=== PATIENT | male | born 1970 | race African-American/Black ===

== ENCOUNTER 2017-10-06 16:42 | Inpatient (IN) | payer MEDICARE, OTHER ==
[2017-10-06] MEDS ORDERED: Morphine 10 MG/ML VIAL ONE (17:50)
[2017-10-06] MEDS ORDERED: Promethazine HCl 25 MG/ML VIAL ONE (17:50)
[2017-10-06] MEDS ORDERED: Piperacillin/Tazobactam 4.5 GM VIAL ONE (17:51)
[2017-10-06] MEDS ORDERED: Sodium Chloride 0.9% 0 ML ONE (17:51)
--- NOTE | 2017-10-06 17:52 | ULT ---
SOFT TISSUE ULTRASOUND OF LEFT UPPER EXTREMITY: 10/06/17 Mcwilliams scale and doppler color flow imaging performed. CLINICAL HISTORY: Edema, clinical concern for abscess. FINDINGS: Imaged soft tissues of the left upper extremity reveal interspersed areas of edema without a localiza ble focal fluid collection. IMPRESSION: Soft tissue edema. No drainable fluid collection evident. Correlate clinically. POS: [facility]
[2017-10-06 17:55] LABS: ALT (SGPT) 45 U/L (8-55); AST (SGOT) 40 U/L (5-34); Albumin 3.7 g/dL (3.5-5.0); Alkaline Phosphatase 48 U/L (40-150); Anion Gap 14 mmol/L (10-20); BUN (Urea Nitrogen) 14 mg/dL (8.9-20.6); Bilirubin, Total 0.6 mg/dL (0.2-1.2); Calc. Creatinine Clearance 0 mL/min (70-130); Carbon Dioxide 26 mmol/L (22-29); Chloride 102 mmol/L (98-107); Estimated GFR-MDRD Greater than 90; Globulin 5.1 g/dL (2.4-3.5); Glucose 107 mg/dL (70-105); Mean Corpuscular HGB CONC 33.6 g/dL (32.0-36.0); Mean Corpuscular Hemoglobin 31.2 pg (27.0-31.0); Mean Corpuscular Volume 92.8 fl (80.0-94.0); Mean Platelet Volume 9.4 fL (7.4-10.4); Platelet Count 115 thou/uL (130-400); Protein, Total 8.8 g/dL (6.0-8.3); RBC Distribution Width 18.4 % (11.5-14.5); Red Blood Cell (RBC) Count 2.89 mill/uL (4.70-6.10); Sodium 138 mmol/L (136-145)
[2017-10-06 18:09] LABS: Anisocytosis SLIGHT = 6-15 cells (100X) (0-5/hpf); Band 5 % (5-11); Eosinophils 2 % (0-10); Hypochromia SLIGHT = 6-15 cells (100X) (0-5/hpf); Lymphocytes 6 % (21-51); MDiff Complete? YES; Metamyelocyte 3 % (0-0); Monocytes 3 % (0-10); Myelocyte 3 % (0-0); Neutrophil 76 % (42-75); Nucleated RBC 1 % (0); PLT Morphology Comment Appears Adequate; Polychromasia SLIGHT = 2-3 cells (100X) (0-2/hpf)
[2017-10-06] MEDS ORDERED: Clindamycin/D5W 900 mg/50 ml Premix Bag ONE (18:36)
[2017-10-06] MEDS ORDERED: Sodium Chloride 0.9% 100 ML ONE (19:23)
[2017-10-06] MEDS ORDERED: HYDROcodone/Acetaminophen 5/325 mg Tablet PO PRN ×2 (22:06)
[2017-10-06] MEDS ORDERED: Sodium Chloride 0.9% 1,000 ML IV SCH (22:06)
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
[2017-10-06 23:30] VITALS: BMI 21.8
[2017-10-06] MEDS: Lactated Ringer's 1,000 ML IV SCH (23:50)
[2017-10-06] MEDS: Piperacillin/Tazobactam 3.375 GM in Sodium Chloride 0.9% 100 ML IVPB SCH (23:59)
[2017-10-06] MEDS ORDERED: Piperacillin/Tazobactam 4.5 GM in Sodium Chloride 0.9% 100 ML IVPB SCH (23:59)
[2017-10-07] MEDS: Ketorolac Tromethamine 30 MG/ML VIAL IVP PRN ×3 (01:31→16:54)
[2017-10-07] MEDS ORDERED: Clindamycin/D5W 900 MG in Premix Bag 1 BAG IVPB SCH (02:00)
[2017-10-07] MEDS ORDERED: Acetaminophen 500 MG TAB PO PRN (04:49)
[2017-10-07 05:31] LABS: Anion Gap 9 mmol/L (10-20); BUN (Urea Nitrogen) 17 mg/dL (8.9-20.6); Calc. Creatinine Clearance 86 mL/min (70-130); Calcium 8.7 mg/dL (7.8-10.44); Carbon Dioxide 28 mmol/L (22-29); Chloride 107 mmol/L (98-107); Estimated GFR-MDRD 86; Glucose 100 mg/dL (70-105); Sodium 140 mmol/L (136-145)
[2017-10-07 05:45] LABS: Band 11 % (5-11); Hemoglobin 8.4 g/dL (14.0-18.0); Lymphocytes 6 % (21-51); MDiff Complete? YES; Macrocytosis SLIGHT = 6-15 cells (100X) (0-5/hpf); Mean Corpuscular HGB CONC 30.3 g/dL (32.0-36.0); Mean Corpuscular Hemoglobin 29.8 pg (27.0-31.0); Mean Corpuscular Volume 98.2 fl (80.0-94.0); Metamyelocyte 27 % (0-0); Monocytes 1 % (0-10); Myelocyte 19 % (0-0); Neutrophil 36 % (42-75); PLT Morphology Comment Appears Decreased; Platelet Count 95 thou/uL (130-400); RBC Distribution Width 18.3 % (11.5-14.5); Red Blood Cell (RBC) Count 2.83 mill/uL (4.70-6.10)
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
[2017-10-07] MEDS ORDERED: Imatinib Mesylate [Gleevec] 400 MG PO SCH (08:00)
[2017-10-07] MEDS: Piperacillin/Tazobactam 3.375 GM in Sodium Chloride 0.9% 100 ML IVPB SCH ×3 (08:06→17:44)
[2017-10-07] MEDS: Hydroxyurea 500 MG CAP PO SCH (08:10)
[2017-10-07] MEDS: Allopurinol 300 MG TAB PO SCH (08:11)
[2017-10-07] MEDS ORDERED: FLU VACC QS2017-18 36 mo. & older 0.5 ML SYRINGE IM ONE (09:00)
[2017-10-07 09:09] LABS: Amphetamine Not Detected (NotDetected); Barbiturates Screen Not Detected (NotDetected); Benzodiazepine Screen Not Detected (NotDetected); Cocaine Metabolite Screen Detected (NotDetected); Medtox Control Line Valid? VALID (VALID); Medtox Reader # READER 1; Methadone Not Detected (NotDetected); Methamphetamine Not Detected (NotDetected); Opiate Screen Detected (NotDetected); Oxycodone Screen Not Detected (NotDetected); Phencyclidine (PCP) Not Detected (NotDetected); THC/Cannabinoid Screen Not Detected (NotDetected); Tricyclic Screen Not Detected (NotDetected)
[2017-10-07] MEDS: Vancomycin HCl 1.25 GM in Sodium Chloride 0.9% 250 ML 250 ML IVPB SCH ×2 (09:10→20:21)
[2017-10-07] MEDS ORDERED: Enoxaparin Sodium 40 MG/0.4 ML SYRINGE SC SCH (09:45)
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
--- NOTE | 2017-10-07 12:00 | RAD ---
CHEST 2 VIEWS: Date: 10/07/17 HISTORY: Bilateral lower lung zone crackles. FINDINGS: Heart size and mediastinum are within normal limits. There is minimal linear interstitial change in t he bases consistent with atelectasis or scar. IMPRESSION: Minimal linear atelectasis or scar in the lung bases. POS: [facility]
[2017-10-07] MEDS: traMADol HCl 50 MG TAB PO PRN (14:37)
[2017-10-07 15:20] LABS: HIV (1/2) Antibody/Antigen Non-Reactive (NonReactive); HIV 1/2 INDEX 0.25 S/CO (<1.00)
[2017-10-08] MEDS: Ketorolac Tromethamine 30 MG/ML VIAL IVP PRN ×2 (00:01→06:24)
[2017-10-08] MEDS: Piperacillin/Tazobactam 3.375 GM in Sodium Chloride 0.9% 100 ML IVPB SCH ×3 (00:02→11:52)
--- NOTE | 2017-10-08 05:49 | PDOC.FM ---
- Subjective Subjective: This morning the patient states he is having mild soreness at the left elbow but the ROM is continuing to increase daily. He denies N/V/D. He denies fevers, chills, or sweats. THe pain is a 4/10 ache, made worse with movement, relieved with tylenol and tramadol. - Objective Vital Signs & Weight: Vital Signs (12 hours) Temp Pulse Resp Pulse Ox 10/07/17 20:00 98.5 F 78 20 95 Weight Weight 75.041 kg Result Diagrams: 10/08/17 07:10 10/08/17 07:10 <Catarino Woods - Last Filed: 10/08/17 10:44> - Objective Vital Signs & Weight: Vital Signs (12 hours) Temp Pulse Resp BP Pulse Ox 10/08/17 08:00 97.7 F 75 18 95 10/08/17 07:10 97.7 F 75 18 112/72 95 Weight Weight 75.041 kg Result Diagrams: 10/08/17 07:10 10/08/17 07:10 <Tomás Soto - Last Filed: 10/08/17 10:53> Phys Exam - Physical Examination Constitutional: NAD HEENT: PERRLA, moist MMs Neck: no nodes, full ROM Respiratory: no wheezing, clear to auscultation bilateral Cardiovascular: RRR 1/6 systolic murmur Gastrointestinal: soft, non-tender, no distention, positive bowel sounds Musculoskeletal: no edema, pulses present Neurological: non-focal, moves all 4 limbs Lymphatic: no nodes Psychiatric: normal affect, A&O x 3 Skin: cap refill <2 seconds Deviation from normal: redness completely resolved, mild swelling of bursa at L elbow, no warmth <Catarino Woods - Last Filed: 10/08/17 10:44> Dx/Plan (1) CML (chronic myeloid leukemia) Code(s): C92.10 - CHRONIC MYELOID LEUK, BCR/ABL-POSITIVE, NOT ACHIEVE REMIS Status: Acute (2) Cellulitis Code(s): L03.90 - CELLULITIS, UNSPECIFIED Status: Acute QualifierTitle: Site of cellulitis: extremity Site of cellulitis of extremity: upper extremity Laterality: left Qualified Code(s): L03.114 - Cellulitis of left upper limb (3) Cellulitis of left elbow Code(s): L03.114 - CELLULITIS OF LEFT UPPER LIMB Status: Acute (4) Cocaine abuse Code(s): F14.10 - COCAINE ABUSE, UNCOMPLICATED Status: Acute (5) Hepatitis C Code(s): B19.20 - UNSPECIFIED VIRAL HEPATITIS C WITHOUT HEPATIC COMA Status: Acute QualifierTitle: Viral hepatitis chronicity: chronic Hepatic coma status: without hepatic coma Qualified Code(s): B18.2 - Chronic viral hepatitis C (6) Normocytic anemia Code(s): D64.9 - ANEMIA, UNSPECIFIED Status: Acute (7) Systolic murmur Code(s): R01.1 - CARDIAC MURMUR, UNSPECIFIED Status: Acute (8) Thrombocytopenia Code(s): D69.6 - THROMBOCYTOPENIA, UNSPECIFIED Status: Acute (9) Gout Code(s): M10.9 - GOUT, UNSPECIFIED Status: Inactive QualifierTitle: Gout site: unspecified site Gout etiology: unspecified cause Chronicity: unspecified Qualified Code(s): M10.9 - Gout, unspecified - Plan Plan: Cellulitis of LUE - US shows no abscess - immunocompromised -Blood cultures no growth to day -Vanc day 1, Zosyn day 3 -LR @ 125 mL/hr -tyl, tramadol Mild Thrombocytopenia - On Gleevac, hasnt refilled lately - 115 -> 95 -> 97 Normocytic Anemia - Hb 8.6 -Will continue to monitor CML Patient was diagnosed in 2006. -Will continue Gleevec and Hydroxyurea -f/u with Onc in [place] Hepatitis C Patient had never been treated. -HIV negative Cocaine Abuse Most recent use of crack cocaine was 2 days b4 admission -UDS opiates, cocaine Systolic Murmur - blood cultures negative - no further workup indicated Gout -Continue home allopurinol Dispo: d.c today pending blood culture results. <Catarino Woods - Last Filed: 10/08/17 10:44> Attending Addendum - Attending Addendum Date/Time: 10/08/17 1050 I personally evaluated the patient and discussed the management with Dr. Woods I agree with the History, Examination, Assessment and Plan documented above with any addition or exceptions noted below.Awaiting final blood culture result anticipate negative then stable for dismissal po antibiotic and follow up with Physician in [place]. <Charles,[employer] - Last Filed: 10/08/17 10:53>
[2017-10-08 07:25] LABS: Hemoglobin 8.6 g/dL (14.0-18.0); Mean Corpuscular HGB CONC 29.7 g/dL (32.0-36.0); Mean Corpuscular Hemoglobin 29.9 pg (27.0-31.0); Mean Platelet Volume 8.4 fL (7.4-10.4); Platelet Count 98 thou/uL (130-400); RBC Distribution Width 18.3 % (11.5-14.5); Red Blood Cell (RBC) Count 2.88 mill/uL (4.70-6.10)
[2017-10-08 07:49] LABS: Anion Gap 8 mmol/L (10-20); BUN (Urea Nitrogen) 12 mg/dL (8.9-20.6); Calc. Creatinine Clearance 98 mL/min (70-130); Calcium 9.1 mg/dL (7.8-10.44); Carbon Dioxide 30 mmol/L (22-29); Chloride 103 mmol/L (98-107); Estimated GFR-MDRD Greater than 90; Glucose 89 mg/dL (70-105); Potassium 4.1 mmol/L (3.5-5.1); Sodium 137 mmol/L (136-145)
[2017-10-08 07:50] LABS: Vancomycin, Trough 9.7 ug/mL
[2017-10-08 07:54] LABS: Band 21 % (5-11); Blast 1 % (0-0); Eosinophils 3 % (0-10); MDiff Complete? YES; Macrocytosis SLIGHT = 6-15 cells (100X) (0-5/hpf); Metamyelocyte 10 % (0-0); Monocytes 1 % (0-10); Myelocyte 15 % (0-0); Neutrophil 43 % (42-75); PLT Morphology Comment Appears Decreased; Polychromasia SLIGHT = 2-3 cells (100X) (0-2/hpf); Promyelocytes 6 % (0-0); Reflex for Review?? NO
[2017-10-08 08:01] VITALS: BP 112/72; TEMP 97.7
[2017-10-08] MEDS: traMADol HCl 50 MG TAB PO PRN (08:21)
[2017-10-08] MEDS: Hydroxyurea 500 MG CAP PO SCH (08:21)
[2017-10-08] MEDS: Allopurinol 300 MG TAB PO SCH (08:21)
[2017-10-08] MEDS: Vancomycin HCl 1.25 GM in Sodium Chloride 0.9% 250 ML 250 ML IVPB SCH (08:22)
[2017-10-08] MEDS: Lactated Ringer's 1,000 ML IV SCH (08:35)
[2017-10-08] MEDS ORDERED: Enoxaparin Sodium 40 MG/0.4 ML SYRINGE SC SCH (09:00)
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
== END 2017-10-08 16:45 | disposition home or self-care (01) | DRG 603 ==
LOC: SCSER 16:42 → ONC 20:49
PROVIDERS: ADMIT Family Medicine; ATTEND Family Medicine
DX: L03.114 Cellulitis of left upper limb (principal); C92.10 Chronic myeloid leukemia, BCR/ABL-positive, not having achieved remission; D69.6 Thrombocytopenia, unspecified; F14.10 Cocaine abuse, uncomplicated; B18.2 Chronic viral hepatitis C; D64.9 Anemia, unspecified; R01.1 Cardiac murmur, unspecified; M10.9 Gout, unspecified; Z79.899 Other long term (current) drug therapy
CPT/HCPCS: 36415; 71046; 76999; 80048; 80053; 80202; 80306; 83605; 85025; 85060; 87040; 87389; 96365; 96367; 96375; A4216; J1650; J1885; J2270; J2543; J2550; J3370; J3490; J7050

== ENCOUNTER 2018-04-26 09:41 | Emergency (ER) | payer MEDICARE ==
[2018-04-26] MEDS ORDERED: Ketorolac Tromethamine 60 MG/2 ML VIAL ONE (10:15)
[2018-04-26] MEDS ORDERED: Metoclopramide HCl 10 MG/2 ML VIAL ONE (10:15)
[2018-04-26 10:40] LABS: Hemoglobin 8.4 g/dL (14.0-18.0); Mean Corpuscular HGB CONC 31.6 g/dL (32.0-36.0); Mean Corpuscular Hemoglobin 29.4 pg (27.0-31.0); Mean Platelet Volume 7.8 fL (7.4-10.4); Platelet Count 124 thou/uL (130-400); RBC Distribution Width 16.8 % (11.5-14.5); Red Blood Cell (RBC) Count 2.87 mill/uL (4.70-6.10)
--- NOTE | 2018-04-26 10:54 | CT ---
CT OF NANCY PERFORMED WIHTOUT CONTRAST ENHANCEMENT: HISTORY: Headache x 1 week. History of hepatitis C and leukemia. FINDINGS: The ventricular and cisternal system is within normal limits. There are no signs of intracerebral he morrhage or extraaxial fluid collections. Mastoid air cells and visualized sinuses are clear. IMPRESSION: No acute intracranial abnormalities. POS: [facility]
--- NOTE | 2018-04-26 10:55 | RAD ---
TWO VIEWS OF THE CHEST: COMPARISON: 10/07/17. HISTORY: Cough. FINDINGS: Two views of the chest show normal sized cardiomediastinal silhouette. There is no evidence of consol idation, mass, or pleural effusion. The bones are unremarkable. IMPRESSION: No evidence of acute cardiopulmonary disease. POS: [facility]
[2018-04-26 10:57] LABS: ALT (SGPT) 56 U/L (8-55); AST (SGOT) 39 U/L (5-34); Acetaminophen Less than 6.0 mcg/mL (10.0-30.0); Albumin 3.9 g/dL (3.5-5.0); Alcohol Less than 10 mg/dL (Less than 10); Alkaline Phosphatase 58 U/L (40-150); Anion Gap 8 mmol/L (10-20); BUN (Urea Nitrogen) 9 mg/dL (8.9-20.6); Bilirubin, Total 0.7 mg/dL (0.2-1.2); Calc. Creatinine Clearance 0 mL/min (70-130); Calcium 9.4 mg/dL (7.8-10.44); Carbon Dioxide 28 mmol/L (22-29); Chloride 102 mmol/L (98-107); Estimated GFR-MDRD 73; Globulin 5.2 g/dL (2.4-3.5); Glucose 108 mg/dL (70-105); Lipase 34 U/L (8-78); Potassium 3.4 mmol/L (3.5-5.1); Protein, Total 9.1 g/dL (6.0-8.3); Salicylate Less than 8.0 mg/dL (15.0-30.0); Sodium 135 mmol/L (136-145)
[2018-04-26 11:01] LABS: Band 22 % (5-11); Blast 5 % (0-0); Lymphocytes 3 % (21-51); MDiff Complete? YES; Metamyelocyte 8 % (0-0); Monocytes 2 % (0-10); Myelocyte 12 % (0-0); Neutrophil 37 % (42-75); Nucleated RBC 5 % (0); PLT Morphology Comment Appears Decreased; Promyelocytes 7 % (0-0); RBC Morphology Normal; Reflex for Review?? NO
[2018-04-26 11:11] LABS: Bilirubin Negative (Negative); Blood, Urine Negative (Negative); Clarity CLEAR (Clear); Glucose, Urine (Dipstick) Negative (Negative); Leukocyte Negative (Negative); Nitrite Negative (Negative); Protein, Urine (Dipstick) 30 mg/dL (Neg-Trace); Specific Gravity, Urine 1.014 (1.002-1.036); pH, Urine 7.5 (5.0-9.0)
[2018-04-26 11:12] LABS: Amphetamine Not Detected (NotDetected); Barbiturates Screen Not Detected (NotDetected); Benzodiazepine Screen Not Detected (NotDetected); Cocaine Metabolite Screen Detected (NotDetected); Medtox Control Line Valid? VALID (VALID); Medtox Reader # READER 1; Methadone Not Detected (NotDetected); Methamphetamine Not Detected (NotDetected); Opiate Screen Not Detected (NotDetected); Oxycodone Screen Not Detected (NotDetected); Phencyclidine (PCP) Not Detected (NotDetected); THC/Cannabinoid Screen Detected (NotDetected); Tricyclic Screen Not Detected (NotDetected)
[2018-04-26 11:14] LABS: Bacteria/HPF None Seen HPF (None Seen); Hyaline Casts/LPF 0-3 HYALINE CAST LPF (0-3 Hyaline); Pathc Cast-AUWi Flag 0.14 (0-2.49); RBC/HPF 0-3 HPF (0-3); Squamous Epithelial None Seen HPF (0-3); WBC/HPF 0-3 HPF (0-3)
== END 2018-04-26 12:10 | disposition home or self-care (01) ==
LOC: ERS 09:41
DX: R51 Headache (principal); C92.10 Chronic myeloid leukemia, BCR/ABL-positive, not having achieved remission; M79.1 Myalgia
CPT/HCPCS: 70450; 71046; 80053; 80306; 80307; 81003; 81015; 83690; 85025; 96365; 96375; J1885; J2765

== ENCOUNTER 2018-08-22 19:41 | Observation (INO) | payer MEDICARE ==
[~2018-08-22 19:41] MED LIST: ISOVUE-370 76%-LOCM 1 ML ONE
[2018-08-22 20:19] LABS: Hemoglobin 9.3 g/dL (14.0-18.0); Mean Corpuscular HGB CONC 29.5 g/dL (32.0-36.0); Mean Corpuscular Hemoglobin 28.3 pg (27.0-31.0); Mean Corpuscular Volume 96.1 fL (78.0-98.0); Mean Platelet Volume 8.4 fL (7.4-10.4); Platelet Count 206 thou/uL (130-400); RBC Distribution Width 15.7 % (11.5-14.5); Red Blood Cell (RBC) Count 3.29 mill/uL (4.70-6.10); White Blood Cell (WBC) Count 92.3 thou/uL (4.8-10.8)
[2018-08-22] MEDS ORDERED: Aspirin 325 MG TAB ONE (20:30)
[2018-08-22 20:36] LABS: Band 17 % (5-11); Hypochromia SLIGHT = 6-15 cells (100X) (0-5/hpf); Lymphocytes 4 % (21-51); MDiff Complete? YES; Metamyelocyte 3 % (0-0); Monocytes 6 % (0-10); Neutrophil 70 % (42-75); Nucleated RBC 2 % (0); Platelet Morphology Comment Appears Adequate; Reflex for Review?? YES
--- NOTE | 2018-08-22 20:36 | RAD ---
FRONTAL RADIOGRAPH CHEST: 08/22/18 COMPARISON: 04/26/18. HISTORY: Left sided chest pain. FINDINGS: No pneumothorax, pleural fluid, focal consolidation, or alveolar edema. The heart and mediastinal con tours are unremarkable. IMPRESSION: No acute findings. POS: [facility]
[2018-08-22 20:49] LABS: ALT (SGPT) 41 U/L (8-55); AST (SGOT) 30 U/L (5-34); Albumin 3.8 g/dL (3.5-5.0); Alkaline Phosphatase 47 U/L (40-150); Anion Gap 8 mmol/L (10-20); BUN (Urea Nitrogen) 15 mg/dL (8.9-20.6); Bilirubin, Total 0.3 mg/dL (0.2-1.2); Calc. Creatinine Clearance 0 mL/min (70-130); Carbon Dioxide 29 mmol/L (22-29); Chloride 104 mmol/L (98-107); Estimated GFR-MDRD 82; Globulin 4.6 g/dL (2.4-3.5); Glucose 75 mg/dL (70-105); Potassium 3.8 mmol/L (3.5-5.1); Protein, Total 8.4 g/dL (6.0-8.3); Sodium 137 mmol/L (136-145)
[2018-08-22 21:52] LABS: Bilirubin Negative (Negative); Blood, Urine Negative (Negative); Clarity CLEAR (Clear); Glucose, Urine (Dipstick) Negative (Negative); Leukocyte Negative (Negative); Nitrite Negative (Negative); Protein, Urine (Dipstick) Negative (Neg-Trace); Specific Gravity, Urine 1.019 (1.002-1.036); Urobilinogen 0.2 mg/dL (0.2-1.0); pH, Urine 5.5 (5.0-9.0)
[2018-08-22 22:04] LABS: Amphetamine Not Detected (NotDetected); Barbiturates Screen Not Detected (NotDetected); Benzodiazepine Screen Not Detected (NotDetected); Cocaine Metabolite Screen Not Detected (NotDetected); Medtox Control Line Valid? VALID (VALID); Medtox Reader # READER 1; Methadone Not Detected (NotDetected); Methamphetamine Not Detected (NotDetected); Opiate Screen Not Detected (NotDetected); Oxycodone Screen Not Detected (NotDetected); Phencyclidine (PCP) Not Detected (NotDetected); THC/Cannabinoid Screen Not Detected (NotDetected); Tricyclic Screen Not Detected (NotDetected)
--- NOTE | 2018-08-22 22:37 | ULT ---
RIGHT LOWER EXTREMITY VENOUS DOPPLER ULTRASOUND: 08/22/18 HISTORY: Pain. swelling, assess for DVT. Intermittent right sided knee pain and swelling. TECHNIQUE: Multiplanar self scale sonographic imaging of the venous structures of right lower extremity obtained with color flow and spectral analysis. FINDINGS: Right common femoral vein, greater saphenous vein, profunda femoral vein, femoral vein, popliteal vei n, and posterior tibial vein are patent. There is a small complex fluid collection in the popliteal f leonila on the right measuring 2.4 x 0.6 x 2.0 cm suggesting a Salcedo's cyst, possibly ruptured. IMPRESSION: Findings suggesting a small Salcedo's cyst as above. No evidence of deep venous thrombosis of the right lower extremity. POS: [facility]
--- NOTE | 2018-08-22 22:50 | CT ---
CT ANGIOGRAM OF THE CHEST: 08/22/18 HISTORY: Left sided chest pain. TECHNIQUE: Axial CT imaging at 2.5 mm intervals from the thoracic inlet through the upper abdomen with IV contra st using a CT angiogram protocol. Coronal and oblique sagittal 3D reformatted imaging obtained. FINDINGS: No enlarged axillary lymph nodes are noted. Multiple subcentimeter nodes are seen within bilateral ax illary regions. No enlarged mediastinal or hilar lymph nodes are noted. The spleen is enlarged, measuring at least 15.1 x 11.0 cm, incompletely visualized on this exam. No pleural, pericardial, or mediastinal fluid seen. No pulmonary arterial filling defect is seen to suggest the presence of pulmonary arterial embolism. No pneumothorax is noted. The lung parenchyma demonstrates no acute findings. No acute osseous abnormality is noted. IMPRESSION: No evidence for pulmonary arterial embolism. Incompletely imaged splenomegaly noted. POS: [facility]
[2018-08-22] MEDS ORDERED: Acetaminophen 325 MG TAB PO PRN (23:39)
[2018-08-22] MEDS ORDERED: Ondansetron PF 4 MG/2 ML Vial IVP PRN (23:39)
[2018-08-22] MEDS ORDERED: Ondansetron ODT 4 MG TAB SL PRN (23:39)
[2018-08-22 23:58] VITALS: BMI 23.0
[2018-08-23] MEDS: Sodium Chloride 0.9% 1,000 ML IV SCH ×3 (00:06→09:33)
[2018-08-23] MEDS ORDERED: Senokot S 8.6-50 MG TAB PO PRN (00:26)
[2018-08-23] MEDS ORDERED: Nitroglycerin 0.4 MG TAB (25 Tab Bottle) PO PRN (00:26)
[2018-08-23] MEDS ORDERED: Acetaminophen 325 MG TAB PO PRN (00:26)
--- NOTE | 2018-08-23 00:50 | HP ---
The patient was seen and examined on 08/22/2018. CHIEF COMPLAINT: Chest discomfort. HISTORY OF PRESENT ILLNESS: The patient is a 48-year-old male with chronic myeloid leukemia and chronic hepatitis C, presented to the emergency room with chest discomfort. Over the last 2 days, the patient has on and off chest discomfort over his left side of the chest. The pain gets worse with deep breathing. He is able to pinpoint where the pain is. He denies any recent falls, injuries, or muscle exertion. No palpitations, syncope, fever, chills, cough reported. He is very active and walks up to 5 miles a day. He had a stress test in 2011 that was negative per the patient's report. In the emergency room, initial vital signs showed temperature of 98.4, respirations 17, pulse of 84 with a blood pressure 111/72, O2 saturation 98% on room air. He received aspirin with IV fluids in the emergency room. Troponin was negative. CT angiogram of the chest was negative for pulmonary embolism or dissection. The patient also had right lower extremity Doppler that was negative for DVT. It showed a small Salcedo cyst in the popliteal fossa. PAST MEDICAL HISTORY: 1. Chronic hepatitis C. 2. Chronic myeloid leukemia. 3. Gout. PAST SURGICAL HISTORY: Incision and drainage of abscess. ALLERGIES: NO KNOWN DRUG ALLERGIES. CURRENT HOME MEDICATIONS: 1. Gleevec 400 mg daily. 2. Allopurinol 300 mg b.i.d.. SOCIAL HISTORY: The patient denies any tobacco or current use of alcohol. He has history of cocaine abuse in the past. He denies current use of cocaine. Urine drug screen in the emergency room was negative. FAMILY HISTORY: Father with colon cancer. REVIEW OF SYSTEMS: All other review of systems were reviewed and were found negative. PHYSICAL EXAMINATION: VITAL SIGNS: As discussed above. GENERAL: A 48-year-old male, in no apparent distress. Chest discomfort has improved. HEENT: Head atraumatic, normocephalic. Sclerae anicteric. Moist mucous membranes. No oral lesion. NECK: Supple. No JVD appreciated. No carotid bruit. LUNGS: Clear to auscultation bilaterally. No wheezing, rales, or rhonchi. HEART: S1 and S2 present. Regular rate and rhythm. No murmurs, rubs, or gallops appreciated. There is point tenderness over his left chest approximately 1 inch medial to the nipple. ABDOMEN: Soft, nontender. Bowel sounds present. EXTREMITIES: No edema or calf tenderness. There is approximately 3 x 3 cm swelling in the popliteal fossa on the right. SKIN: Warm and dry. LYMPH NODE: No palpable lymph nodes in the neck. PERIPHERAL VASCULAR: Radial pulses palpable bilaterally. MUSCULOSKELETAL: No joint swelling or tenderness. LABORATORY FINDINGS: WBC 92.3, hemoglobin 9.3, platelet 206. D-dimer 1.77. Chemistry showed sodium 137, potassium 3.8, chloride 104, bicarb 29, BUN 15, and creatinine 1.1. Urinalysis and urine drug screen negative. Chest x-ray by my review was negative for infiltrate or edema. EKG by my review showed sinus rhythm with premature ventricular complexes. IMPRESSION: 1. Atypical pleuritic chest pain with pinpoint tenderness. 2. Chronic myeloid leukemia, on Gleevec. 3. Gout, on allopurinol. 4. Chronic hepatitis C. 5. Chronic kidney disease stage 2. 6. Elevated D-dimer with negative CT angiogram of the chest. 7. Splenomegaly. 8. Chronic normochromic normocytic anemia. PLAN: 1. The patient will be monitored on the telemetry unit. Serial troponins will be obtained. Echocardiogram will be obtained to rule out pericarditis. We will check magnesium due to PVCs. Continue home medications once verified. 2. Disposition, probably in 24 hours. 3. Diet, heart healthy. 4. Plan was discussed with the patient in detail. He stated understanding. We will continue aspirin. Job ID: [id number]
[2018-08-23] MEDS: HYDROcodone/Acetaminophen 5/325 mg Tablet PO PRN ×2 (07:27→11:39)
[2018-08-23] MEDS ORDERED: (Imatinib Mesylate [Gleevec] 400 MG) PO SCH (08:00)
[2018-08-23 08:11] VITALS: BP 109/61; TEMP 97.7
[2018-08-23] MEDS ORDERED: Aspirin 81 mg Enteric Coated Tablet PO SCH (09:00)
[2018-08-23] MEDS ORDERED: Allopurinol 300 MG TAB PO SCH (09:00)
--- NOTE | 2018-08-23 12:00 | PDOC.PN ---
- Subjective Encounter Start Date: 08/23/18 Encounter Start Time: 10:00 Subjective: no specific chest pain or palp -: has gen body ache which has gotten better -: no fever, cough or palp or sob - Objective Resuscitation Status - Order Detail: 08/23/18 00:26 Resuscitation Status Routine Resuscitation Status: FULL: Full Resuscitation MAR Reviewed: Yes Vital Signs & Weight: Vital Signs (12 hours) Temp Pulse Resp BP Pulse Ox 08/23/18 08:00 97.7 F 70 16 109/61 98 08/23/18 03:53 97.4 F L 66 16 102/55 L 97 Weight Weight 174 lb 4.8 oz I&O: 08/22/18 08/23/18 08/24/18 06:59 06:59 06:59 Intake Total 1405 Output Total 1050 500 Balance 355 -500 Result Diagrams: 08/22/18 20:00 08/22/18 20:00 Phys Exam - Physical Examination HEENT: PERRLA, moist MMs Neck: no JVD, supple Respiratory: no wheezing, no rales Cardiovascular: RRR, no significant murmur Gastrointestinal: soft, non-tender, positive bowel sounds Musculoskeletal: no edema, pulses present Neurological: non-focal, moves all 4 limbs Psychiatric: normal affect, A&O x 3 Dx/Plan (1) Chest pain Code(s): R07.9 - CHEST PAIN, UNSPECIFIED Status: Resolved (2) CML (chronic myeloid leukemia) Code(s): C92.10 - CHRONIC MYELOID LEUK, BCR/ABL-POSITIVE, NOT ACHIEVE REMIS Status: Chronic Comment: non compliance with gleevec (3) Normocytic anemia Code(s): D64.9 - ANEMIA, UNSPECIFIED Status: Chronic - Plan hemostable -: d/w , has 1 % bands and unlikely to have hyperviscosity synd -: to f/u with Dr.Mark Sawyer at [facility] on 09/09/2018 -: He has moved to this area and likely will f/u with locally -: no signs of acs, dc pt home * .
--- NOTE | 2018-08-25 15:35 | DIS ---
DATE OF ADMISSION: 08/22/2018 DATE OF DISCHARGE: 08/23/2018 DISCHARGE DISPOSITION: To home. PRIMARY DISCHARGE DIAGNOSIS: Chest pain, which is noncardiac. SECONDARY DISCHARGE DIAGNOSES: 1. Chronic history of chronic myelogenous leukemia, on Gleevec. 2. Normocytic anemia. PROCEDURES DONE DURING HOSPITALIZATION: Echo with 2D Doppler done showed an EF of 55% to 60%, moderate tricuspid regurgitation. RV systolic pressures were [address] angio chest showed no evidence of PE. Splenomegaly was incidentally seen. Right lower extremity venous ultrasound Doppler done showed small Salcedo cyst. No evidence of DVT in the right lower extremity. He had a white count of 92 with hemoglobin and hematocrit of 9 and 31, platelet count 206, with 70% neutrophils and 17% bands, and 1% rare blasts seen. Troponin x3 negative. BNP less than 10. Serum calcium 9, albumin 3.8, lipase was 47, BUN 15, creatinine 1.1, and serum bicarb 29. Urine tox screen was negative. DISCHARGE MEDICATIONS: 1. Gleevec 400 mg p.o. daily. 2. Allopurinol 300 mg p.o. twice daily. ALLERGIES: NO KNOWN DRUG ALLERGIES. DISCHARGE PLAN: The patient is to follow up with his primary oncologist, Dr. Ariel Sawyer at [facility] on 09/09/2018. He also needs to follow up with primary care physician in 1 week. BRIEF COURSE DURING HOSPITALIZATION: The patient initially came in with complaints of chest pain, which was worse on deep breathing. In view of this history, the patient was placed under observation on telemetry. He has had CT angio of chest done, which showed no evidence of DVT. The patient has known history of CML and had been noncompliant with Gleevec and he started taking it daily from last 2 months or so. His white count was more than 200, two months back which has been gradually coming down with the current number of 92. He has had 3 sets of troponin being negative. He has remained chest pain-free during his brief stay here. He has followup appointment to see his primary oncologist on the 09 of September and needs to keep up with his appointment. He had only 1% blasts seen on his peripheral smear and I have discussed his CBC with current clinical findings with Dr. Goodwin, who was donor relations officer for Oncology. Per our conversation, the patient is not at risk for hyperviscosity per Dr. Goodwin. He is ambulating and eating well. His generalized body aches and chest pain had completely resolved. He was counseled with regard to medication compliance. He is hemodynamically stable and will be shortly discharged home. He also needs to see his primary care physician in 1 week. Please see a [id number] documentation for the day of discharge on [place]. Job ID: [id number]
== END 2018-08-23 12:14 | disposition home or self-care (01) ==
LOC: ERS 19:41 → 2SW 23:36
PROVIDERS: ADMIT Internal Medicine; ATTEND Internal Medicine
DX: R07.89 Other chest pain (principal); C92.10 Chronic myeloid leukemia, BCR/ABL-positive, not having achieved remission; B18.2 Chronic viral hepatitis C; M71.21 Synovial cyst of popliteal space [Baker], right knee; M10.9 Gout, unspecified; N18.2 Chronic kidney disease, stage 2 (mild); D64.9 Anemia, unspecified; Z79.899 Other long term (current) drug therapy
CPT/HCPCS: 71045; 71275; 80053; 80306; 81003; 83690; 83735; 83880; 84484 ×3; 85025; 85379; 93005; 93306; 93971; 94760 ×2; 96360; 96361 ×2; 99285; G0378 ×2; 36415; 85060; Q9966

== ENCOUNTER 2019-01-19 09:14 | Emergency (ER) | payer MEDICARE ==
[2019-01-19 10:20] LABS: Band 22 % (5-11); Eosinophils 1 % (0-10); Lymphocytes 6 % (21-51); MDiff Complete? YES; Mean Corpuscular HGB CONC 31.3 g/dL (32.0-36.0); Mean Corpuscular Hemoglobin 29.7 pg (27.0-31.0); Mean Corpuscular Volume 94.8 fL (78.0-98.0); Mean Platelet Volume 8.3 fL (7.4-10.4); Metamyelocyte 10 % (0-0); Monocytes 3 % (0-10); Myelocyte 4 % (0-0); Neutrophil 54 % (42-75); Platelet Count 343 thou/uL (130-400); RBC Distribution Width 14.1 % (11.5-14.5); Red Blood Cell (RBC) Count 4.39 mill/uL (4.70-6.10); Reflex for Review?? YES; White Blood Cell (WBC) Count 61.6 thou/uL (4.8-10.8)
--- NOTE | 2019-01-19 10:20 | RAD ---
Exam: XR Tib Fib Rt Leg 2 View HISTORY: Right leg pain after injury on Sunday. COMPARISON: None FINDINGS: There is a corticated osseous density located inferior to the lateral malleolus which may represent a remote avulsion injury versus accessory center of ossification. Similar but smaller finding is seen adjacent to the medial malleolus. No acute fracture, dislocation, or other acute osseous abnormality is identified. IMPRESSION: No acute osseous abnormality is identified.
[2019-01-19 10:21] LABS: ALT (SGPT) 11 U/L (8-55); AST (SGOT) 17 U/L (5-34); Albumin 4.1 g/dL (3.5-5.0); Alkaline Phosphatase 52 U/L (40-150); Anion Gap 12 mmol/L (10-20); BUN (Urea Nitrogen) 14 mg/dL (8.9-20.6); Bilirubin, Total 0.7 mg/dL (0.2-1.2); Calc. Creatinine Clearance 0 mL/min (70-130); Calcium 9.2 mg/dL (7.8-10.44); Carbon Dioxide 27 mmol/L (22-29); Chloride 102 mmol/L (98-107); Estimated GFR-MDRD 80; Globulin 4.3 g/dL (2.4-3.5); Glucose 93 mg/dL (70-105); Potassium 4.1 mmol/L (3.5-5.1); Protein, Total 8.4 g/dL (6.0-8.3); Sodium 137 mmol/L (136-145)
[2019-01-19] MEDS ORDERED: Acetaminophen 500 MG TAB ONE (10:55)
== END 2019-01-19 11:15 | disposition home or self-care (01) ==
LOC: ERS 09:14
DX: S80.11XA Contusion of right lower leg, initial encounter (principal); C92.10 Chronic myeloid leukemia, BCR/ABL-positive, not having achieved remission; L25.9 Unspecified contact dermatitis, unspecified cause; M10.9 Gout, unspecified; Z86.19 Personal history of other infectious and parasitic diseases; W19.XXXA Unspecified fall, initial encounter
CPT/HCPCS: 36415; 80053; 85025; 85060

== ENCOUNTER 2019-05-30 12:52 | Emergency (ER) | payer MEDICARE ==
[2019-05-30 13:54] LABS: #Basophils 0.1 thou/uL (0.0-0.2); #Eosinphils 0.1 thou/uL (0.0-0.7); #Lymphocytes 1.5 thou/uL (1.20-3.40); #Monocytes 0.7 thou/uL (0.11-0.59); #Neutrophils 6.2 thou/uL (1.40-6.50); %Basophils 0.8 % (0.0-1.0); %Eosinophils 0.8 % (0.0-10.0); %Lymphocytes 17.6 % (21.0-51.0); %Monocytes 8.4 % (0.0-10.0); %Neutrophils 72.4 % (42.0-75.0); Hemoglobin 14.2 g/dL (14.0-18.0); Mean Corpuscular HGB CONC 33.3 g/dL (32.0-36.0); Mean Corpuscular Hemoglobin 31.6 pg (27.0-31.0); Mean Corpuscular Volume 94.9 fL (78.0-98.0); Mean Platelet Volume 8.2 fL (7.4-10.4); Platelet Count 233 thou/uL (130-400); RBC Distribution Width 13.3 % (11.5-14.5); Red Blood Cell (RBC) Count 4.49 mill/uL (4.70-6.10); White Blood Cell (WBC) Count 8.5 thou/uL (4.8-10.8)
[2019-05-30 14:16] LABS: ALT (SGPT) 13 U/L (8-55); AST (SGOT) 30 U/L (5-34); Albumin 4.4 g/dL (3.5-5.0); Alkaline Phosphatase 42 U/L (40-110); Anion Gap 16 mmol/L (10-20); BUN (Urea Nitrogen) 14 mg/dL (8.4-25.7); Bilirubin, Total 1.6 mg/dL (0.2-1.2); Calc. Creatinine Clearance 0 mL/min (70-130); Calcium 9.4 mg/dL (7.8-10.44); Carbon Dioxide 27 mmol/L (22-29); Chloride 99 mmol/L (98-107); Estimated GFR-MDRD 89; Globulin 3.9 g/dL (2.4-3.5); Glucose 60 mg/dL (70-105); Potassium 3.6 mmol/L (3.5-5.1); Protein, Total 8.3 g/dL (6.0-8.3); Sodium 138 mmol/L (136-145)
--- NOTE | 2019-05-30 15:50 | RAD ---
PORTABLE CHEST 1 VIEW: DATE: 05/30/2019. TIME: 3:01 p.m. HISTORY: Cough, body aches. FINDINGS: Comparison is made with the exam of 08/22/2018. The heart size is normal. The aorta is tortuous. Th e lungs are well expanded without lobar consolidation, pneumothoraces, or pleural effusions. IMPRESSION: No radiographic evidence of acute cardiopulmonary process. POS: OFF
[2019-05-30] MEDS ORDERED: Ketorolac Tromethamine 30 MG/ML VIAL ONE (16:06)
== END 2019-05-30 17:06 | disposition home or self-care (01) ==
LOC: ERS 12:52
DX: J06.9 Acute upper respiratory infection, unspecified (principal); R51 Headache; M10.9 Gout, unspecified; Z79.899 Other long term (current) drug therapy
CPT/HCPCS: 71045; 80053; 85025; 87804; 96374; J1885

== ENCOUNTER 2020-12-06 13:33 | Outpatient (CLI) | payer MEDICARE | END 2020-12-06 13:34 | disposition home or self-care (01) | LOC: BICRAD 13:33 | PROVIDERS: ATTEND Family Medicine | DX: M17.11 Unilateral primary osteoarthritis, right knee (principal) ==

== ENCOUNTER 2021-04-27 08:38 | Day surgery (SDC) | payer MEDICARE ==
[2021-04-26 14:48] VITALS: BMI 29.3
[2021-04-27 09:01] LABS: INR-International Normal Ratio 0.9; Prothrombin Time 12.5 sec (12.0-14.7)
[2021-04-27 09:02] LABS: PTT 28.5 sec (22.9-36.1)
[2021-04-27 09:50] VITALS: BP 120/81; TEMP 98.1
== END 2021-04-27 11:40 | disposition home or self-care (01) ==
LOC: CT 08:38
PROVIDERS: ATTEND Internal Medicine Hematology & Oncology
PROC: 0QB23ZX Excision of Right Pelvic Bone, Percutaneous Approach, Diagnostic (ICD-10-PCS; principal; 2021-04-27)
DX: C92.10 Chronic myeloid leukemia, BCR/ABL-positive, not having achieved remission (principal); Z79.899 Other long term (current) drug therapy; M10.9 Gout, unspecified; Z91.11 Patient's noncompliance with dietary regimen; Z91.14 Patient's other noncompliance with medication regimen
CPT/HCPCS: 38222; 77002; 85097; 85610; 85730; 88184; 88237; 88264; 88280; 88305; 88311; 88313

== ENCOUNTER 2021-09-19 08:55 | Emergency (ER) | payer MEDICARE ==
[2021-09-19] MEDS ORDERED: Morphine 4 MG/ML VIAL ONE (09:17)
[2021-09-19 09:31] LABS: Bilirubin Negative (Negative); Blood, Urine Negative (Negative); Clarity Clear (Clear); Glucose, Urine (Dipstick) Normal (Negative); Ketone, Urine Negative (Negative); Leukocyte Negative Leu/uL (Negative); Nitrite Negative (Negative); Protein, Urine (Dipstick) Negative (Neg-Trace); Specific Gravity, Urine 1.019 (1.002-1.036); Urobilinogen Normal mg/dL (Less than 2); pH, Urine 5.5 (5.0-9.0)
[2021-09-19 09:41] LABS: #Basophils 0.1 thou/uL (0.0-0.2); #Eosinphils 0.1 thou/uL (0.0-0.7); #Monocytes 0.5 thou/uL (0.11-0.59); #Neutrophils 3.6 thou/uL (1.40-6.50); %Basophils 1.1 % (0.0-1.0); %Eosinophils 1.2 % (0.0-10.0); %Lymphocytes 18.7 % (21.0-51.0); %Monocytes 9.8 % (0.0-10.0); %Neutrophils 69.3 % (42.0-75.0); Hemoglobin 14.5 g/dL (14.0-18.0); Mean Corpuscular HGB CONC 32.1 g/dL (32.0-36.0); Mean Corpuscular Hemoglobin 29.7 pg (27.0-31.0); Mean Corpuscular Volume 92.5 fL (78.0-98.0); Mean Platelet Volume 7.9 fL (7.4-10.4); Platelet Count 130 thou/uL (130-400); RBC Distribution Width 14.2 % (11.5-14.5); Red Blood Cell (RBC) Count 4.88 mill/uL (4.70-6.10); White Blood Cell (WBC) Count 5.2 thou/uL (4.8-10.8)
[2021-09-19 10:01] LABS: ALT (SGPT) 10 U/L (8-55); AST (SGOT) 13 U/L (5-34); Albumin 4.2 g/dL (3.5-5.0); Alkaline Phosphatase 55 U/L (40-110); Anion Gap 11 mmol/L (10-20); BUN (Urea Nitrogen) 7 mg/dL (8.4-25.7); Bilirubin, Total 0.5 mg/dL (0.2-1.2); Calc. Creatinine Clearance 0 mL/min (70-130); Calcium 9.4 mg/dL (7.8-10.44); Carbon Dioxide 27 mmol/L (22-29); Chloride 101 mmol/L (98-107); Globulin 4.5 g/dL (2.4-3.5); Glucose 101 mg/dL (70-105); Lipase 22 U/L (8-78); Potassium 3.8 mmol/L (3.5-5.1); Protein, Total 8.7 g/dL (6.0-8.3); Sodium 135 mmol/L (136-145)
[2021-09-19] MEDS ORDERED: Iopamidol-370 76% 500 ML 1 ML ONE (11:38)
== END 2021-09-19 11:41 | disposition home or self-care (01) ==
LOC: ERS 08:55
DX: R19.04 Left lower quadrant abdominal swelling, mass and lump (principal); I10 Essential (primary) hypertension; K57.30 Diverticulosis of large intestine without perforation or abscess without bleeding
CPT/HCPCS: 36415; 74177; 80053; 81003; 83690; 85025; 87040; 87086; 96374; J2270; Q9967

== ENCOUNTER 2022-11-24 14:32 | Outpatient (CLI) | payer OTHER | END 2022-11-24 14:33 | disposition home or self-care (01) | LOC: SCSMRI 14:32 | PROVIDERS: ATTEND Internal Medicine Hematology & Oncology | DX: C92.10 Chronic myeloid leukemia, BCR/ABL-positive, not having achieved remission (principal); M54.50 Low back pain, unspecified; M79.606 Pain in leg, unspecified; M47.816 Spondylosis without myelopathy or radiculopathy, lumbar region; R29.890 Loss of height; M51.36 Other intervertebral disc degeneration, lumbar region; M48.062 Spinal stenosis, lumbar region with neurogenic claudication; M53.3 Sacrococcygeal disorders, not elsewhere classified | CPT/HCPCS: 72158 ==

== ENCOUNTER 2023-12-27 09:07 | Outpatient (CLI) | payer OTHER | END 2023-12-27 09:08 | disposition home or self-care (01) | LOC: DTY/OP 09:07 | PROVIDERS: ATTEND Student in an Organized Health Care Education/Training Program | DX: E66.8 Other obesity (principal) | CPT/HCPCS: 97802 ==

== ENCOUNTER 2024-06-15 12:21 | Emergency (ER) | payer OTHER ==
[2024-06-15 13:05] LABS: #Basophils 0.03 10x3/uL (0.0-0.2); %Basophils 0.4 % (0.0-1.0); %Eosinophils 0.9 % (0.0-10.0); %Lymphocytes 12.9 % (21.0-51.0); %Monocytes 9.2 % (0.0-10.0); %Neutrophils 76.3 % (42.0-75.0); Hematocrit 47.1 % (42.0-52.0); Mean Corpuscular Hemoglobin 32.1 pg (27.0-31.0); Mean Corpuscular Volume 94.6 fL (78.0-98.0); Mean Platelet Volume 9.8 fL (7.4-10.4); Platelet Count 196 10x3/uL (130-400); RBC Distribution Width 12.4 % (11.5-14.5); Red Blood Cell (RBC) Count 4.98 mill/uL (4.70-6.10)
[2024-06-15] MEDS ORDERED: Morphine 4 MG/ML VIAL ONE ×2 (13:07→14:57)
[2024-06-15] MEDS ORDERED: Ondansetron PF 4 MG/2 ML Vial ONE (13:07)
[2024-06-15] MEDS ORDERED: Ketorolac Tromethamine 30 MG (1 mL) VIAL ONE (13:16)
[2024-06-15 13:27] LABS: ALT (SGPT) 15 U/L (8-55); AST (SGOT) 20 U/L (5-34); Albumin 4.6 g/dL (3.5-5.0); Alkaline Phosphatase 57 U/L (40-110); Anion Gap 14 mmol/L (10-20); BUN (Urea Nitrogen) 11 mg/dL (8.4-25.7); Bilirubin, Total 0.7 mg/dL (0.2-1.2); Calc. Creatinine Clearance 0 mL/min (70-130); Calcium 10.2 mg/dL (7.8-10.44); Carbon Dioxide 29 mmol/L (22-29); Chloride 100 mmol/L (98-107); Estimated GFR 91; Globulin 5.2 g/dL (2.4-3.5); Glucose 102 mg/dL (70-105); Lipase 21 U/L (8-78); Potassium 3.4 mmol/L (3.5-5.1); Protein, Total 9.8 g/dL (6.0-8.3); Sodium 140 mmol/L (136-145)
== END 2024-06-15 16:10 | disposition home or self-care (01) ==
LOC: ERS 12:21
DX: R10.31 Right lower quadrant pain (principal); I10 Essential (primary) hypertension; Z55.6 Problems related to health literacy; Z75.3 Unavailability and inaccessibility of health-care facilities
CPT/HCPCS: 74177; 80053; 83605; 83690; 85025; 96374; 96375; 99284; J1885; J2272; J2405; 36415

== ENCOUNTER 2024-09-12 06:10 | Emergency (ER) | payer OTHER ==
[2024-09-12] MEDS ORDERED: HYDROcodone/Acetaminophen 5/325 mg Tablet ONE (06:38)
[2024-09-12] MEDS ORDERED: Cyclobenzaprine 10 MG TAB ONE (06:38)
== END 2024-09-12 08:27 | disposition home or self-care (01) ==
LOC: ERS 06:10
DX: M54.50 Low back pain, unspecified (principal); M25.551 Pain in right hip; I10 Essential (primary) hypertension
CPT/HCPCS: 72100; 72170